=== PATIENT | male | born 1985 | race Caucasian/White ===

== ENCOUNTER 2017-12-03 21:33 | Emergency (ER) | payer MEDICAID ==
[2017-12-04] MEDS: ACET/BUTAL/CAFF TAB PO (02:08)
== END 2017-12-04 04:38 | disposition home or self-care (01) ==
LOC: FTE 21:33
DX: R51 Headache (principal)
CPT/HCPCS: 70450; 99284-25

== ENCOUNTER 2018-09-06 23:11 | Emergency (ER) | payer MEDICAID ==
[2018-09-07] MEDS: KETOROLAC 60 MG INJ IM (00:58)
== END 2018-09-07 02:25 | disposition home or self-care (01) ==
LOC: FTE 23:11
DX: R51 Headache (principal)
CPT/HCPCS: 96372; 99284-25; J1885